=== PATIENT | male | born 1960 | race American Indian/Alaskan Native ===

== ENCOUNTER 2020-03-28 02:03 | Emergency (ER) | payer SELFPAY ==
[2020-03-28 02:56] VITALS: BP 90/59
[2020-03-28 03:31] LABS: Basophils % (Auto) 0.4 % (0.0-1.8); Eosinophils # (Auto) 0.2 K/mm3 (0.0-0.4); Eosinophils % (Auto) 3.3 % (0.0-4.3); Hemoglobin 14.1 gm/dl (11.8-15.2); Lymphocytes % (Auto) 29.5 % (13.4-35.0); Monocytes # (Auto) 0.7 K/mm3 (0.0-0.8); Monocytes % (Auto) 10.7 % (0.0-7.3)
[2020-03-28 03:37] LABS: Alanine Aminotransferase 15 units/L (7-56); BUN/Creatinine Ratio 13; Blood Urea Nitrogen 18 mg/dL (9-20); Calcium 8.9 mg/dL (8.4-10.2); Hemolysis Index 5
[2020-03-28 03:45] LABS: Hematocrit 42.8 % (35.5-45.6); Mean Corpuscular Volume 80 fl (84-94); Red Blood Count 5.35 M/mm3 (3.65-5.03)
[2020-03-28 03:46] LABS: Mean Corpuscular HGB Conc 33 % (32-34); Mean Platelet Volume 7.6 fl (6-12); Platelet Count 215 K/mm3 (140-440); Red Cell Distribution Width 14.3 % (13.2-15.2)
[2020-03-28] MEDS ORDERED: FAMOTIDINE 20 MG/2 ML INJ IV ONE (04:02)
[2020-03-28] MEDS ORDERED: DIPHENOXYLATE/ATROPINE TAB PO ONE (04:02)
[2020-03-28] MEDS ORDERED: SODIUM CHLORIDE 0.9% 1000 ML 1,000 ML IV ONE (04:02)
--- NOTE | 2020-03-28 06:11 | Emergency Department Report ---
ED N/V/D HPI - General Chief complaint: Nausea/Vomiting/Diarrhea Stated complaint: DIARRHEA Source: patient, EMS Mode of arrival: Ambulatory Limitations: Physical Limitation - History of Present Illness Initial comments: Patient is a 59-year-old -[place] man with a history of bipolar disorder, PTSD, chronic osteoarthritis and ysk-[id number]-kwspymxnk diabetes who presents to the ED with complaint of acute onset persistent intermittent diarrhea and nausea for the last 5 days after eating certain food at a restaurant and also receiving his first flu vaccination 5 days ago. Patient states that the diarrhea has been persistent since the onset of the symptoms. Patient denies dizziness, syncope, chest pain, shortness of breath, fever and chills, change in vision, dysuria, urinary frequency and urgency, vomiting and abdominal pain, sore throat or headache. MD complaint: nausea, diarrhea -: Sudden, days(s) (5) Description of Diarrhea: water Associated Abdominal Pain: No Location: diffuse Radiation: none Severity: moderate Pain Scale: 0 Quality: dull Consistency: intermittent Improves with: none Worsens with: none Context: possible food poisoning Associated Symptoms: denies other symptoms, loss of appetite, malaise. denies: myalgias, chest pain, cough, diaphoresis, fever/chills, headaches, nausea/vomiting, rash, dysuria, weakness - Related Data Previous Rx's Medication Instructions Recorded Last Taken Type Dicyclomine [Bentyl] 20 mg PO Q6H PRN #24 tablet 03/28/20 Unknown Rx Diphenoxylate/Atropine [Lomotil] 1 - 2 tab PO Q4H PRN #15 tablet 03/28/20 Unknow n Rx Allergies Allergy/AdvReac Type Severity Reaction Status Date / Time No Known Allergies Allergy Unverified 03/28/20 02:39 ED Review of Systems ROS: Stated complaint: DIARRHEA Other details as noted in HPI Constitutional: malaise, weakness. denies: chills, fever Eyes: denies: eye pain, eye discharge, vision change ENT: denies: ear pain, throat pain Respiratory: denies: cough, shortness of breath, wheezing Cardiovascular: denies: chest pain, palpitations Endocrine: no symptoms reported Gastrointestinal: nausea, diarrhea. denies: abdominal pain Genitourinary: denies: urgency, dysuria Musculoskeletal: denies: back pain, joint swelling, arthralgia Skin: denies: rash, lesions Neurological: denies: headache, weakness, paresthesias Psychiatric: denies: anxiety, depression Hematological/Lymphatic: denies: easy bleeding, easy bruising ED Past Medical Hx - Past Medical History Previous Medical History?: Yes Hx Diabetes: Yes (Prediabetic) Hx Arthritis: Yes Hx Psychiatric Treatment: Yes (Bipolar, PTSD) Additional medical history: Torn Ligaments left knee last week, Bilateral Knee gel injections, Irregular Heart rate - Surgical History Past Surgical History?: Yes Additional Surgical History: Left Knee Arthroscopic surgery, Bunion surgery on both feet - Social History Smoking Status: Current Every Day Smoker - Medications Home Medications: Home Medications Medication Instructions Recorded Confirmed Last Taken Type Dicyclomine [Bentyl] 20 mg PO Q6H PRN #24 tablet 03/28/20 Unknown Rx Diphenoxylate/Atropine [Lomotil] 1 - 2 tab PO Q4H PRN #15 tablet 03/28/20 Unknown Rx ED Physical Exam - General Limitations: Physical Limitation General appearance: alert, in no apparent distress - Head Head exam: Present: atraumatic, normocephalic, normal inspection - Eye Eye exam: Present: normal appearance, PERRL, EOMI Pupils: Present: normal accommodation - ENT ENT exam: Present: normal exam, normal orophraynx, mucous membranes moist, TM's normal bilaterally, normal external ear exam - Neck Neck exam: Present: normal inspection, full ROM. Absent: tenderness - Respiratory Respiratory exam: Present: normal lung sounds bilaterally. Absent: respiratory distress, wheezes, rales, chest wall tenderness, decreased breath sounds, prolonged expiratory - Cardiovascular Cardiovascular Exam: Present: regular rate, normal rhythm, normal heart sounds. Absent: systolic murmur, diastolic murmur, rubs, gallop - GI/Abdominal GI/Abdominal exam: Present: soft, normal bowel sounds. Absent: tenderness, guarding, rebound, hyperactive bowel sounds, organomegaly, mass - Extremities Exam Extremities exam: Present: normal inspection, full ROM, normal capillary refill - Back Exam Back exam: Present: normal inspection, full ROM. Absent: tenderness, CVA tenderness (R), CVA tenderness (L), muscle spasm, paraspinal tenderness - Neurological Exam Neurological exam: Present: alert, oriented X3, CN II-XII intact, normal gait, reflexes normal - Psychiatric Psychiatric exam: Present: normal affect, normal mood - Skin Skin exam: Present: warm, dry, intact, normal color. Absent: rash ED Course Vital Signs 03/28/20 02:44 Temperature 98.0 F Pulse Rate 60 Respiratory 17 Rate Blood Pressure 90/59 O2 Sat by Pulse 95 Oximetry ED Medical Decision Making - Lab Data Result diagrams: 03/28/20 03:00 03/28/20 03:00 - Medical Decision Making This is a 59-year-old -[place] man with a history of bipolar disorder, PTSD, chronic osteoarthritis and bui-gbxfjij-gezlmmswz diabetes who presents to the ED with complaint of acute onset persistent intermittent diarrhea and nausea for the last 5 days after eating certain food at a restaurant and also receiving his first flu vaccination 5 days ago. Patient states that the diarrhea has been persistent since the onset of the symptoms. In the ED, patient is alert and oriented x3 and is not in distress with normal vital signs. Patient received normal saline 1 L IV bolus x1. Patient also was treated with Pepcid and Lomotil in the ED. On reevaluation, patient felt better and lab test results were reviewed and are all nonactionable except for mild elevated creatinine consistent with dehydration. Patient was discharged home and advised to drink plenty of fluids, take medications and follow-up with his primary care physician in 5 to 7 days for reevaluation. Patient was advised return to the ED immediately if symptoms get worse. - Differential Diagnosis Gastroenteritis; viral syndrome; dehydration; GERD Critical care attestation.: If time is entered above; I have spent that time in minutes in the direct care of this critically ill patient, excluding procedure time. ED Disposition Clinical Impression: Diarrhea in adult patient, Acute viral syndrome, Dehydration Disposition: DC-01 TO HOME OR SELFCARE Is pt being admited?: No Does the pt Need Aspirin: No Condition: Stable Instructions: Gastroenteritis (ED), Acute Diarrhea (ED), Nutrition Tips for Relief of Diarrhea (ED) Additional Instructions: Lab test results are all nonactionable. Therefore take medications with food, follow-up with your primary care physician in 3 to 5 days for reevaluation. Return to the ED immediately if symptoms get worse. Prescriptions: Dicyclomine [Bentyl] 20 mg PO Q6H PRN #24 tablet PRN Reason: Abdominal pain Diphenoxylate/Atropine [Lomotil] 1 - 2 tab PO Q4H PRN #15 tablet PRN Reason: Diarrhea Referrals: [facility] [Provider Group] - 3-5 Days Time of Disposition: 06:14 Print Language: SPANISH
== END 2020-03-28 06:25 | disposition home or self-care (01) ==
LOC: ED 02:03
DX: B34.9 Viral infection, unspecified (principal); E86.0 Dehydration; R19.7 Diarrhea, unspecified; F31.9 Bipolar disorder, unspecified; E11.9 Type 2 diabetes mellitus without complications; M19.90 Unspecified osteoarthritis, unspecified site; F17.200 Nicotine dependence, unspecified, uncomplicated; Z79.899 Other long term (current) drug therapy; Z98.890 Other specified postprocedural states
CPT/HCPCS: 36415; 80053; 83690; 85025; 96361; 96374; 99284; J7030

== ENCOUNTER 2020-12-09 22:00 | Emergency (ER) | payer MEDICAID, MEDICARE ==
[2020-12-09 22:27] VITALS: BP 112/40
--- NOTE | 2020-12-09 23:35 | Emergency Department Report ---
ED Lower Extremity HPI - General Chief Complaint: Skin/Abscess/Foreign Body Stated Complaint: INFECTION TO RIGHT FOOT Time Seen by Provider: 12/09/20 23:23 Source: patient Mode of arrival: Wheelchair Limitations: Physical Limitation - History of Present Illness Initial Comments: 60-year-old male, presents to ED with right foot pain and swelling. Patient states approximately 2 weeks ago he noticed some bruising on the anterior aspect of his foot. Patient states he was seen at [place] approximately 1 week ago for this. States they did x-rays which were negative. Patient states he wears boots for work. Today while at work, he has been experiencing pain in the same area of the bruise and swelling of his right foot. Patient states it appears as though a piece of metal is now sticking out from the area. He is unsure how it may have gotten there. Unsure if it is from the inside of his boot. He denies any fever. MD Complaint: foot injury -: days(s) (1) Type of Injury: puncture wound Place: work Severity: moderate Improves With: nothing Worsens With: movement, palpation Associated Symptoms: swelling - Related Data Previous Rx's Medication Instructions Recorded Last Taken Type Dicyclomine [Bentyl] 20 mg PO Q6H PRN #24 tablet 03/28/20 Unknown Rx Diphenoxylate/Atropine [Lomotil] 1 - 2 tab PO Q4H PRN #15 tablet 03/28/20 Unknown Rx HYDROcodone/APAP 5-325 [[place] 1 each PO Q6HR PRN #10 tablet 12/10/20 Unknown Rx 5/325] Naproxen [Naprosyn] 500 mg PO BID #20 tablet 12/10/20 Unknown Rx Sulfamethoxazole/Trimethoprim 1 each PO BID 10 Days #20 tablet 12/10/20 Unknown Rx [Bactrim DS TAB] cephALEXin [Keflex] 500 mg PO Q12HR 10 Days #20 cap 12/10/20 Unknown Rx Allergies Allergy/AdvReac Type Severity Reaction Status Date / Time No Known Allergies Allergy Unverified 03/28/20 02:39 ED Review of Systems ROS: Stated complaint: INFECTION TO RIGHT FOOT Other details as noted in HPI Comment: All other systems reviewed and negative Constitutional: denies: fever Musculoskeletal: as per HPI ED Past Medical Hx - Past Medical History Previous Medical History?: Yes Hx Diabetes: Yes (Prediabetic) Hx Arthritis: Yes Hx Psychiatric Treatment: Yes (Bipolar, PTSD) Additional medical history: Torn Ligaments left knee last week, Bilateral Knee gel injections, Irregular Heart rate - Surgical History Past Surgical History?: Yes Additional Surgical History: Left Knee Arthroscopic surgery, Bunion surgery on both feet - Social History Smoking Status: Current Some Day Smoker Substance Use Type: None - Medications Home Medications: Home Medications Medication Instructions Recorded Confirmed Last Taken Type Dicyclomine [Bentyl] 20 mg PO Q6H PRN #24 tablet 03/28/20 Unknown Rx Diphenoxylate/Atropine [Lomotil] 1 - 2 tab PO Q4H PRN #15 tablet 03/28/20 Unknown Rx HYDROcodone/APAP 5-325 [[place] 1 each PO Q6HR PRN #10 tablet 12/10/20 Unknown Rx 5/325] Naproxen [Naprosyn] 500 mg PO BID #20 tablet 12/10/20 Unknown Rx Sulfamethoxazole/Trimethoprim 1 each PO BID 10 Days #20 tablet 12/10/20 Unknown Rx [Bactrim DS TAB] cephALEXin [Keflex] 500 mg PO Q12HR 10 Days #20 cap 12/10/20 Unknown Rx ED Physical Exam - General Limitations: Physical Limitation General appearance: alert, in no apparent distress - Head Head exam: Present: atraumatic, normocephalic - Eye Eye exam: Present: normal appearance, EOMI - ENT ENT exam: Present: mucous membranes moist - Neck Neck exam: Present: normal inspection - Respiratory Respiratory exam: Present: normal lung sounds bilaterally. Absent: respiratory distress - Cardiovascular Cardiovascular Exam: Present: regular rate, normal rhythm - GI/Abdominal GI/Abdominal exam: Absent: distended - Extremities Exam Extremities exam: Present: tenderness, other (Swelling to right foot; quarter size area of dark discoloration to the anterior right foot, with a 1 mm metallic object sticking out of the foot) - Neurological Exam Neurological exam: Present: alert, oriented X3. Absent: motor sensory deficit - Psychiatric Psychiatric exam: Present: normal affect, normal mood - Skin Skin exam: Present: warm, dry, normal color ED Course Vital Signs 12/09/20 22:24 Temperature 98.2 F Pulse Rate 59 L Respiratory 16 Rate Blood Pressure 112/40 [Left] O2 Sat by Pulse 99 Oximetry ED Lower Extremity MDM - Lab Data Result diagrams: 12/09/20 23:35 12/09/20 23:35 - Radiology Data Radiology results: report reviewed, image reviewed - Medical Decision Making Patient reports he had bunion surgery approximately 30 years ago. On x-ray this appears to be the pin that has migrated externally. WBCs are normal, patient is afebrile. Will discharge patient at this time with prescription for antibiotics and pain medications. Will give follow-up information and for Ortho and software client architect. Critical care attestation.: If time is entered above; I have spent that time in minutes in the direct care of this critically ill patient, excluding procedure time. ED Disposition Clinical Impression: Exposed orthopaedic hardware Disposition: TO HOME OR SELFCARE Is pt being admited?: No Condition: Stable Prescriptions: Sulfamethoxazole/Trimethoprim [Bactrim DS TAB] 1 each PO BID 10 Days #20 tablet cephALEXin [Keflex] 500 mg PO Q12HR 10 Days #20 cap Naproxen [Naprosyn] 500 mg PO BID #20 tablet HYDROcodone/APAP 5-325 [[place] 5/325] 1 each PO Q6HR PRN #10 tablet PRN Reason: Pain Referrals: DESI STONE MD [Staff Physician] - 2-3 Days ASIA FLEMING DPM [Staff Physician] - 2-3 Days Time of Disposition: 01:08
[2020-12-10 00:19] LABS: Basophils % (Auto) 0.7 % (0.0-1.8); Eosinophils # (Auto) 0.2 K/mm3 (0.0-0.4); Eosinophils % (Auto) 3.3 % (0.0-4.3); Hematocrit 38.7 % (35.5-45.6); Lymphocytes # (Auto) 2.1 K/mm3 (1.2-5.4); Lymphocytes % (Auto) 35.8 % (13.4-35.0); Mean Corpuscular HGB Conc 34 % (32-34); Mean Corpuscular Volume 80 fl (84-94); Monocytes # (Auto) 0.5 K/mm3 (0.0-0.8); Monocytes % (Auto) 8.5 % (0.0-7.3); Platelet Count 215 K/mm3 (140-440); Red Blood Count 4.85 M/mm3 (3.65-5.03); Red Cell Distribution Width 14.4 % (13.2-15.2)
[2020-12-10 00:35] LABS: BUN/Creatinine Ratio 12; Blood Urea Nitrogen 12 mg/dL (9-20); Calcium 8.9 mg/dL (8.4-10.2); Hemolysis Index 1
--- NOTE | 2020-12-10 00:37 | XRay Report ---
RIGHT FOOT 3 VIEWS INDICATION / CLINICAL INFORMATION: pain, swelling, foreign body COMPARISON: None available. FINDINGS: BONES / JOINT(S): No acute fracture is seen. Changes of prior bunionectomy of the great toe are noted . There is a metal pin in the great toe metatarsal. There is moderate to severe degenerative change a nd grade 2 Joint. There is no periosteal reaction. SOFT TISSUES: There is soft tissue swelling in the medial distal right foot. ADDITIONAL FINDINGS: There is no definite evidence of osteomyelitis. If osteomyelitis is a clinical c oncern, MRI or three-phase bone scan can be obtained to further evaluate. Signer Name: Bandar Ulrich MD Signed: 12/10/2020 12:32 AM Workstation Name: [id number]
[2020-12-10] MEDS ORDERED: HYDROcodone/ACETAMINOPHEN 5-325 MG TAB PO ONE (01:54)
== END 2020-12-10 02:39 | disposition home or self-care (01) ==
LOC: ED 22:00
DX: T84.498A Other mechanical complication of other internal orthopedic devices, implants and grafts, initial encounter (principal); E11.9 Type 2 diabetes mellitus without complications; M19.90 Unspecified osteoarthritis, unspecified site; F31.9 Bipolar disorder, unspecified; F17.200 Nicotine dependence, unspecified, uncomplicated; Z79.899 Other long term (current) drug therapy; Z98.890 Other specified postprocedural states; X58.XXXA Exposure to other specified factors, initial encounter; Y93.89 Activity, other specified; Y92.89 Other specified places as the place of occurrence of the external cause; Y99.0 Civilian activity done for income or pay
CPT/HCPCS: 36415; 80048; 85025